=== PATIENT | male | born 1980 | race Caucasian/White ===

== ENCOUNTER → 2020-12-16 08:56 | Outpatient (BNVA) | payer SELFPAY | PROVIDERS: Family Provider Family Medicine; Visit Provider Nurse Practitioner Family | DX: I10 Essential (primary) hypertension (principal) | CPT/HCPCS: 80053; 80061 ==

== ENCOUNTER 2023-12-12 02:32 | Emergency (ER) | payer OTHER, SELFPAY ==
[2023-12-12] VITALS (7 sets, daily range): BP systolic 157–231; BP diastolic 92–153; PULSE 80–104; RESP 16–18; TEMP 36.4; O2SAT 95–97; BMI 27.1
--- NOTE | 2023-12-12 02:51 | CTR_ITS ---
PROCEDURE INFORMATION: Exam: CT Neck With Contrast Exam date and time: 12/12/2023 3:03 AM Age: 43 years old Clinical indication: Neck pain and painful swallowing and throat pain; Additional info: Left soft tissue mass vs peritonsilar abscess TECHNIQUE: Imaging protocol: Computed tomography of the neck with contrast. Radiation optimization: All CT scans at this facility use at least one of these dose optimization techniques: automated exposure control; mA and/or kV adjustment per patient size (includes targeted exams where dose is matched to clinical indication); or iterative reconstruction. Contrast material: [id number]; Contrast volume: 75 ml; Contrast route: INTRAVENOUS (IV); COMPARISON: No relevant prior studies available. RADIATION DOSE METRICS: Total DLP (mGy-cm): 320.2 FINDINGS: Salivary glands: Normal. Glands are normal in size. Pharynx: There is asymmetric enlargement of the left palatine tonsil which appears to contain multiple calcifications. There is a superimposed heterogeneous left peritonsillar collection versus mass measuring 1.7 x 1.4 x 1.6 cm. Prevertebral and retropharyngeal spaces: Unremarkable. Larynx: Unremarkable. Epiglottis is normal. Thyroid: Normal. No enlarged or calcified nodules. Trachea: Visualized trachea is unremarkable. Lungs: Unremarkable as visualized. Lymph nodes: Unremarkable. No lymphadenopathy. Bones/joints: Unremarkable. No acute fracture. Soft tissues: Unremarkable. No significant soft tissue swelling. CT/CT neck w con* [id number] IMPRESSION: Findings suspicious for a left peritonsillar abscess. A left peritonsillar mass although less likely could have this appearance and clinical correlation is recommended.
--- NOTE | 2023-12-12 02:54 | W.ED.GENADLT ---
HPI - General Adult General: Chief complaint: Airway/Esophagus Foreign Body Stated complaint: throat feels like its closing Time Seen by Provider: 12/12/23 02:42 History of Present Illness: Patient presents to the ER with complaints of left side of his throat very tender and swollen. He said he did not feel good on Monday but the swelling started around 10 AM on Monday he noticed he is having a hard time swallowing and unable to eat or drink any liquids lots of difficulty. Patient states he has had chills on and off all night. Related Data Previous Rx's Medication Instructions Recorded lisinopril 40 mg tablet 40 mg PO DAILY #30 tabs 12/11/20 Allergies Allergy/AdvReac Type Severity Reaction Status Date / Time No Known Allergies Allergy Verified 12/11/20 11:51 [facility] ED PFSH: Medical History Hypertension Social History Smoking and tobacco/nicotine status: current every day tobacco/nicotine user Alcohol intake: never Physical Exam Const: COMMON NORMALS: no acute distress, average body habitus, patient oriented x3, no limitations, healthy appearing, alert and well nourished HENMT: COMMON NORMALS: normocephalic, atraumatic, external ears normal and Normal external nose present; oropharynx not normal (Large swelling left tonsillar area probable peritonsillar abscess) HEAD & SCALP: normocephalic and atraumatic NOSE: Normal external nose present EXTERNAL EAR: Yes external ears normal Eye: COMMON NORMALS: Equal, round and reactive pupils present, EOMs intact bilaterally, conjunctivae normal and no scleral icterus CONJUNCTIVA: Yes conjunctivae normal PUPIL: Yes Equal, round and reactive pupils present Neck/C-Spine: COMMON NORMALS: full ROM, supple, no meningeal signs and no JVD; negative for no lymphadenopathy (Large swelling with submandibular area very tender) Chest: COMMONS NORMALS: normal inspection of the chest and normal palpation of entire chest wall Resp: COMMON NORMALS: normal respiratory effort, No retractions, No use of accessory muscles and clear to auscultation bilaterally AUSCULTATION: clear to auscultation bilaterally Cardio: COMMON NORMALS: no JVD, regular rate, regular rhythm, S1 normal heart sound present, S2 normal heart sound present, No gallops present (Cardio), No clicks present (Cardio), No murmurs present (Cardio) and No rub (Cardio) RATE: regular rate RHYTHM: regular rhythm HEART SOUNDS: S1 normal heart sound present and S2 normal heart sound present GI: COMMON NORMALS: Normal to inspection, nondistended, normoactive bowel sounds present, Soft to palpation, non-tender, No hepatosplenomegaly present and no masses PALPATION: Yes Soft to palpation and Yes No hepatosplenomegaly present Neuro: COMMON NORMALS: patient oriented x3 SENSORIUM/ORIENTATION: Yes alert MENINGEAL SIGNS: Yes no meningeal signs Course Vital Signs: Vital signs: Vital Signs Temperature 97.6 F 12/12/23 02:43 Pulse Rate 85 12/12/23 04:08 Respiratory Rate 16 12/12/23 04:08 Blood Pressure 164/96 12/12/23 04:08 Pulse Oximetry 95 12/12/23 04:08 Oxygen Delivery Me thod Room Air 12/12/23 02:43 [facility] - General Adult Medical Decision Making Lab work revealed white count 15.3, BUN/creatinine of 25 and 1.5, CT of the neck with contrast showed findings suspicious for left peritonsillar abscess, Dr. Benitez was consulted who said place patient on steroids clindamycin have him follow-up with him in the office. Will give the patient 125 mg Solu-Medrol, 600 mg of clindamycin. Will discharge him and let him follow-up in Dr. Benitez's office. Medical Records I reviewed the patient's medical records. Lab Data I reviewed the patient's lab results. 12/12/23 02:55 12/12/23 02:[address] 12/12/23 02:51 IMPRESSION: Findings suspicious for a left peritonsillar abscess. A left peritonsillar mass although less likely could have this appearance and clinical correlation is recommended. Laboratory Results WBC 15.33 10^3/uL (3.29-11.43) H 12/12/23 02:55 RBC 5.08 10^6/uL (3.85-5.65) 12/12/23 02:55 Hgb 15.80 g/dL (11.27-16.99) 12/12/23 02:55 Hct 46.2 % (37-53) 12/12/23 02:55 MCV 90.9 fl (82-101) 12/12/23 02:55 MCH 31.1 pg (27-33) 12/12/23 02:55 MCHC 34.2 g/dL (30-55) 12/12/23 02:55 RDW 12.2 % (12.1-15.1) 12/12/23 02:55 Plt Count 207 10^3/cmm (157-399) 12/12/23 02:55 MPV 11.7 fL (7.4-10.4) H 12/12/23 02:55 Neut % (Auto) 81.2 % 12/12/23 02:55 Lymph % (Auto) 9.9 % 12/12/23 02:55 [place] % (Auto) 7.6 % 12/12/23 02:55 Eos % (Auto) 0.5 % 12/12/23 02:55 Baso % (Auto) 0.5 % 12/12/23 02:55 Neut # (Auto) 12.46 10^3/uL (1.8-7.7) H 12/12/23 02:55 Lymph # (Auto) 1.5 10^3/uL (0.8-4.8) 12/12/23 02:55 [place] # (Auto) 1.2 10^3/uL (0.2-0.9) H 12/12/23 02:55 Eos # (Auto) 0.1 10^3/uL (0.0-0.8) 12/12/23 02:55 Baso # (Auto) 0.1 10^3/uL (0.0-0.1) 12/12/23 02:55 Nucleated RBC % (auto) 0 % 12/12/23 02:55 Nucleated RBCs # 0.0 /100WBC 12/12/23 02:55 Sodium 138 mmol/L (136-145) 12/12/23 02:55 Potassium 3.5 mmol/L (3.5-5.1) 12/12/23 02:55 Chloride 97 mmol/L (98-107) L 12/12/23 02:55 Carbon Dioxide 27 mmol/L (22-29) 12/12/23 02:55 Anion Gap 17.5 (5-19) 12/12/23 02:55 BUN 25 mg/dL (6-20) H 12/12/23 02:55 Creatinine 1.5 mg/dL (0.7-1.2) H 12/12/23 02:55 GFR Calculation 51.6 mL/min (90-130) L 12/12/23 02:55 Glucose 110 mg/dL (65-115) 12/12/23 02:55 Calculated Osmolality 291 mOsm/kg (285-295) 12/12/23 02:55 Lactic Acid 0.8 mmol/L (0.5-2.2) 12/12/23 02:55 Calcium 9.7 mg/dL (8.5-10.5) 12/12/23 02:55 Total Bilirubin 1.5 mg/dL (0.15-1.2) H 12/12/23 02:55 AST 30 U/L (0-40) 12/12/23 02:55 ALT 24 U/L (0-41) 12/12/23 02:55 Alkaline Phosphatase 86 U/L (40-130) 12/12/23 02:55 Total Protein 7.9 g/dL (6.6-8.7) 12/12/23 02:55 Albumin 4.6 g/dL (3.5-5.2) 12/12/23 02:55 Globulin 3.3 g/dL (1.3-4.6) 12/12/23 02:55 Procalcitonin 0.10 ng/mL (0-0.5) 12/12/23 02:55 All radiology interpretation(s) finalized by discharge Discharge Plan Discharge Patient Disposition: Home Clinical Impression: Abscess, peritonsillar Condition: Stable Prescriptions: No Action lisinopril 40 mg tablet 40 mg PO DAILY Qty: 30 1RF Discharge Orders: Discharge ED (Routine); Ordered 12/12/23 Ordered By: Kishor Welsh Referrals: Griffin Nichols MD [Family Provider] - 1 week Patient Instructions: Peritonsillar Abscess - Adult Activity Restrictions/Additional Instructions: Your CAT scan showed you have a probable left peritonsillar abscess, you are given Solu-Medrol 125 mg and clindamycin 600 mg IV we did consult Dr. Benitez ear nose and throat and you are to call his office at 8 AM to arrange follow-up and probable drainage of this abscess. Coding Level of Care Code ED Radiography Technician for Brenda Cervantes
[2023-12-12 03:00] LABS: Basophils # 0.1 10^3/uL (0.0-0.1); Basophils % 0.5 %; Eosinophils # 0.1 10^3/uL (0.0-0.8); Eosinophils % 0.5 %; Hematocrit 46.2 % (37-53); Lymphocytes # 1.5 10^3/uL (0.8-4.8); Lymphocytes % 9.9 %; Mean Corpuscular HGB Conc 34.2 g/dL (30-55); Mean Corpuscular Hemoglobin 31.1 pg (27-33); Mean Corpuscular Volume 90.9 fl (82-101); Mean Platelet Volume 11.7 fL (7.4-10.4); Monocytes # 1.2 10^3/uL (0.2-0.9); Monocytes % 7.6 %; Neutrophils # 12.46 10^3/uL (1.8-7.7); Neutrophils % 81.2 %; Nucleated Red Blood Cells % 0 %; Platelet Count 207 10^3/cmm (157-399); Red Blood Count 5.08 10^6/uL (3.85-5.65); Red Cell Distribution Width 12.2 % (12.1-15.1); White Blood Count 15.33 10^3/uL (3.29-11.43)
[2023-12-12] MEDS: methylPREDNISolone sod succ 125 mg/2 mL INJ IVP (03:00)
[2023-12-12] MEDS: hyDRALAzine 20 mg/mL INJ 1 mL IVP (03:00)
[2023-12-12] MEDS: sodium chloride 0.9% 1,000 ML 999 ML IV (03:00)
[2023-12-12] MEDS: ketorolac 30 mg/mL INJ IVP (03:00)
[2023-12-12] MEDS: iohexol 350 mg/mL 500 mL Btl (per mL) IV (03:14)
[2023-12-12 03:18] LABS: Alanine Aminotransferase 24 U/L (0-41); Albumin Level 4.6 g/dL (3.5-5.2); Alkaline Phosphatase 86 U/L (40-130); Anion Gap 17.5 (5-19); Aspartate Amino Transferase 30 U/L (0-40); Blood Urea Nitrogen 25 mg/dL (6-20); Calcium 9.7 mg/dL (8.5-10.5); Carbon Dioxide 27 mmol/L (22-29); Chloride 97 mmol/L (98-107); Creatinine Clr Calc Pharmacy 75.9433; Globulin 3.3 g/dL (1.3-4.6); Glomerular Filtration Rate 51.6 mL/min (90-130); Glucose 110 mg/dL (65-115); Osmolality Calculated 291 mOsm/kg (285-295); Potassium 3.5 mmol/L (3.5-5.1); Sodium 138 mmol/L (136-145); Total Bilirubin 1.5 mg/dL (0.15-1.2); Total Protein 7.9 g/dL (6.6-8.7)
[2023-12-12 03:19] LABS: Lactic Sepsis W/Reflex 0.8 mmol/L (0.5-2.2)
[2023-12-12] MEDS: labetalol 5 mg/mL SDV 20mL 20 MG IVP (03:54)
[2023-12-12] MEDS: HYDROmorphone 1 mg/mL INJ 1 mL IVP (04:03)
[2023-12-12] MEDS: clindamycin 600 MG/50 ML PREMIX 100 MG IV (05:17)
[2023-12-12] MEDS: HYDROmorphone 1 mg/mL INJ 1 mL 0.5 MG IVP (06:00)
--- NOTE | 2023-12-12 17:25 | PM.PN ---
Vitals/I&O/Wt Last Vital Signs Temp 97.6 F 12/12/23 02:43 Pulse 80 12/12/23 05:39 Resp 16 12/12/23 05:38 BP 157/92 12/12/23 05:39 Pulse Ox 97 12/12/23 05:39 O2 Del Method Room Air 12/12/23 05:38 12/12/23 12/12/23 12/12/23 06:59 14:59 22:59 Intake Total 1050 / 1050 Balance 1050 / 1050 Weight last 48 hrs Weight 90.718 kg Data 12/12/23 02:55 12/12/23 02:55 Coding Level of Care Code Acute Code for Chg Fwd
== END 2023-12-12 06:06 | disposition home or self-care (01) ==
PROVIDERS: Emergency Provider Emergency Medicine; Family Provider Family Medicine
DX: J36 Peritonsillar abscess (principal); I10 Essential (primary) hypertension; Z72.0 Tobacco use
CPT/HCPCS: 70491; 80053; 83605; 84145; 85025; 96361; 96365; 96375; 96376; 99285; J0360; J1170; J1885; J2919; J3490; J7030